=== PATIENT | male | born 1970 | race Two or more races ===

== ENCOUNTER 2019-10-21 01:44 | Emergency (ER) | payer OTHER ==
[~2019-10-21] VITALS: Ht 167.6 cm; Wt 81.2 kg
[2019-10-21] MEDS ORDERED: LIDOCAINE 1%-EPI 1:100K, 50ML INFIL ONE (02:30)
[2019-10-21] MEDS ORDERED: LIDOCAINE 1%-EPI 1:100K, 20ML ONE (02:36)
[2019-10-21] MEDS ORDERED: KETAMINE 10 MG/ML, 20ML ONE (02:37)
--- NOTE | 2019-10-21 03:25 | NUR ---
PT SEDATED FOR PROCEDURE TO REMOVE 1.5IN SLIVER FROM LEFT FOREARM. PT MEDICATED PER MAR. PT TOLERATED PROCEDURE WELL, REPORTS NO MEMORY OF THE EVENT EXPECTED. PT RESTING ON GURNEY WITH FAMILY AT BS. AOX4, TALKATIVE. PT UPDATED ON POC. MONITORING IN PLACE PRIOR TO, DURING AND AFTER PROCEDURE.
[2019-10-21 03:52] VITALS: BP 149/92
--- NOTE | 2019-10-21 04:14 | NUR ---
PT ATTEMPTED TO STAND, UNABLE TO WALK WITH STEADY GAIT AT THIS TIME.
== END 2019-10-21 05:14 | disposition home or self-care (01) ==
LOC: ED 02:44
DX: S61.522A Laceration with foreign body of left wrist, initial encounter (principal); X58.XXXA Exposure to other specified factors, initial encounter; Y93.89 Activity, other specified; Y92.69 Other specified industrial and construction area as the place of occurrence of the external cause; Y99.8 Other external cause status
CPT/HCPCS: 12041; 99285